=== PATIENT | female | born 1970 | race Caucasian/White ===

== ENCOUNTER 2017-08-07 06:28 | Emergency (ER) | payer MEDICAID ==
[~2017-08-07] VITALS: Ht 172.7 cm; Wt 72.6 kg
[2017-08-07 06:43] VITALS: BP_SYST 153
[2017-08-07] MEDS ORDERED: traMADol HCL HCL 50 MG TABLET (ULTRAM) PO ONE (07:30)
[2017-08-07 08:28] VITALS: BP_SYST 144
== END 2017-08-07 08:28 | disposition home or self-care (01) ==
LOC: SED 06:28
DX: S05.92XA Unspecified injury of left eye and orbit, initial encounter (principal); H54.7 Unspecified visual loss; R00.8 Other abnormalities of heart beat; W22.8XXA Striking against or struck by other objects, initial encounter; Y93.89 Activity, other specified; Y92.89 Other specified places as the place of occurrence of the external cause; Y99.8 Other external cause status
CPT/HCPCS: 93005; 99283

== ENCOUNTER 2017-08-09 04:25 | Emergency (ER) | payer MEDICAID ==
[~2017-08-09] VITALS: Ht 170.2 cm; Wt 70.3 kg
[2017-08-09 04:32] VITALS: BP_SYST 136
[2017-08-09] MEDS ORDERED: KETOROLAC TROMETHAMINE 60 MG/2 ML VIAL IM ONE (05:00)
[2017-08-09 05:46] VITALS: BP_SYST 138
== END 2017-08-09 05:46 | disposition home or self-care (01) ==
LOC: SED 04:25
DX: H40.9 Unspecified glaucoma (principal); R03.0 Elevated blood-pressure reading, without diagnosis of hypertension
CPT/HCPCS: 96372; 99283; J1885

== ENCOUNTER 2019-01-16 19:42 | Emergency (ER) | payer MEDICAID ==
[~2019-01-16] VITALS: Ht 170.2 cm; Wt 59.0 kg
[2019-01-16 19:48] VITALS: BP_SYST 138
[2019-01-16 21:39] VITALS: BP_SYST 134
== END 2019-01-16 21:39 ==
LOC: SED 19:42
DX: Z02.89 Encounter for other administrative examinations (principal); H54.7 Unspecified visual loss; G40.909 Epilepsy, unspecified, not intractable, without status epilepticus
CPT/HCPCS: 99283

== ENCOUNTER 2019-04-02 08:17 | Emergency (ER) | payer MEDICAID ==
[~2019-04-02] VITALS: Ht 170.2 cm; Wt 61.2 kg
[2019-04-02 08:26] VITALS: BP_SYST 148
--- NOTE | 2019-04-02 08:30 | NUR ---
Patient to ER bed 7 to gown for evaluation. Side rails up. Report given to Cornelia PIERCE.
--- NOTE | 2019-04-02 08:40 | NUR ---
Patient c/o of cough and flu like symptoms x 2 weeks which causes pressure on her chest every time she coughs. Patient noted to be coughing at this time, no signs of distress. Patient stated to have used methamphetamines this morning. Patient able to communicate needs.
--- NOTE | 2019-04-02 08:56 | NUR ---
Dr. Courtney at bedside for examination.
[2019-04-02] MEDS ORDERED: IPRATROPIUM/ALBUTEROL SULFATE 3 ML AMPUL.NEB (DUONEB) INH ONE (09:15)
[2019-04-02] MEDS ORDERED: IPRATROPIUM/ALBUTEROL SULFATE 3 ML AMPUL.NEB (DUONEB) ONE (09:24)
--- NOTE | 2019-04-02 09:36 | NUR ---
Patient given written and verbal discharge instructions and verbalizes understanding. ER MD discussed with patient the results and treatment provided. Patient in stable condition. ID arm band removed. Rx of albuterol, tamiflu, tessalon given. Patient educated on pain management and to follow up with PMD. Pain Scale 0/10.Opportunity for questions provided and answered. Medication side effect fact sheet provided.
[2019-04-02 09:37] VITALS: BP_SYST 148
== END 2019-04-02 09:37 | disposition home or self-care (01) ==
LOC: SED 08:17
DX: B34.9 Viral infection, unspecified (principal); Z86.69 Personal history of other diseases of the nervous system and sense organs
CPT/HCPCS: 94640; 99283; J7620